=== PATIENT | female | born 1985 | race Caucasian/White ===

== ENCOUNTER 2021-09-16 15:07 | Emergency (ER) | payer MEDICAID ==
[~2021-09-16] VITALS: Ht 165.1 cm; Wt 49.9 kg
[2021-09-16 15:22] VITALS: BP 111/85
--- NOTE | 2021-09-16 15:33 | NUR ---
COVID SWAB DONE AND SENT TO LAB
[2021-09-16] MEDS ORDERED: GUAI5LIQ10 PO (16:55)
[2021-09-16] MEDS ORDERED: IBUP-1955 PO (16:55)
--- NOTE | 2021-09-20 14:30 | NUR ---
+COVID. PT CALLED AND NOTIFIED. INSTRUCTIONS GIVEN ON SELF ISOLATION, AND TO REST AND DRINK PLENTY OF FLUIDS. PT INTSRUCTED TO RETURN TO ER IF EXPERIENCES WORSENING SOB.
== END 2021-09-16 17:06 | disposition home or self-care (01) ==
LOC: ER 15:09
DX: U07.1 COVID-19 (principal); J06.9 Acute upper respiratory infection, unspecified
CPT/HCPCS: 71045; 87426; 99284; C9803 ×2; U0003